=== PATIENT | female | born 1995 | race Caucasian/White ===

== ENCOUNTER → 2021-08-23 16:07 | Outpatient (CLI) | payer OTHER, SELFPAY ==
[2021-08-23 16:58] LABS: Appearance Urine UA CLEAR; Bilirubin Urine UA NEGATIVE (NEGATIVE); Color Urine UA YELLOW; Glucose Urine UA NEGATIVE (Negative); Ketones Urine UA NEGATIVE (NEGATIVE); Leukocyte Esterase Urine UA NEGATIVE (NEGATIVE); Nitrite Urine UA NEGATIVE (Negative); Occult Blood Urine UA TRACE-INTACT (Negative); Protein Urine UA NEGATIVE (Negative); Urobilinogen Urine UA 0.2 E.U./dL (0.2)
[2021-08-23 17:43] LABS: Add Manual Diff / Slide Review NO; Basophils Absolute Auto 100 /uL (0-100); Basophils Percent Auto 0.7 % (0-2); Eosinophils Absolute Auto 500 /uL (0-450); Eosinophils Percent Auto 4.7 % (2-4); Hematocrit 34.6 % (36-46); Hemoglobin 12.4 g/dL (12.0-16.0); Lymphocytes Absolute Auto 2500 /uL (1100-4500); Lymphocytes Percent Auto 23.9 % (25-40); Mean Corpuscular HGB Conc 35.8 % (30-36); Mean Corpuscular Volume 86.7 fL (80-100); Monocytes Absolute Auto 700 /uL (0-900); Monocytes Percent Auto 6.9 % (3-14); Neutrophils Absolute Auto 6700 /uL (1500-7000); Neutrophils Percent Auto 63.8 % (50-75); Platelet Count 290 X10^3/uL (150-400); Red Blood Cell Count 3.99 X10^6/uL (4.0-5.2); Red Cell Distribution Width 12.2 % (11.6-14.8); White Blood Cell Count 10.5 X10^3/uL (4.5-11.0)
[2021-08-24 07:25] LABS: RPR Screen Non Reactive (Non Reactive)
[2021-08-25 06:18] LABS: Varicella IgG Antibody <135 index (Immune >165)
[2021-08-26 16:18] LABS: Hepatitis B Surface Antigen NEGATIVE s/c (NEGATIVE); Rubella Antibody IgG 15.1 IU/mL (>15)
[2021-08-26 16:33] LABS: HIV 1 & 2 Ab/Ag 4th Gen Combo NEGATIVE (NEGATIVE); Hep C Virus Ab w/Reflex Quant NEGATIVE s/c (NEGATIVE)
== END ==
PROVIDERS: PCP Physician Assistant; Referring Provider Obstetrics & Gynecology; Visit Provider Obstetrics & Gynecology
DX: Z34.01 Encounter for supervision of normal first pregnancy, first trimester (principal)
CPT/HCPCS: 36415; 80055; 81003; 86787; 86803; 86850; 86900; 86901; 87086; 87389

== ENCOUNTER → 2021-09-05 16:39 | Outpatient (CLI) | payer OTHER, SELFPAY ==
[2021-09-05 20:49] LABS: Urine Chlamydia NOT DETECTED; Urine N gonorrhoeae NOT DETECTED
== END ==
PROVIDERS: PCP Physician Assistant; Visit Provider Obstetrics & Gynecology
DX: Z34.01 Encounter for supervision of normal first pregnancy, first trimester (principal); Z3A.10 10 weeks gestation of pregnancy
CPT/HCPCS: 87491; 87591

== ENCOUNTER → 2021-10-17 17:17 | Outpatient (CLI) | payer OTHER, SELFPAY ==
[2021-10-21 16:07] LABS: AFP Value 37.3 ng/mL (.); Gest Age on Col Date 16.3 weeks (.); Insulin Dep Diabetes No (.); OSBR Risk 1IN 10000 (.); Results Report (.); Test Results *Screen Negative* (.)
== END ==
PROVIDERS: PCP Physician Assistant; Referring Provider Obstetrics & Gynecology; Visit Provider Obstetrics & Gynecology
DX: Z34.02 Encounter for supervision of normal first pregnancy, second trimester (principal); Z3A.16 16 weeks gestation of pregnancy
CPT/HCPCS: 36415; 82105

== ENCOUNTER → 2021-11-22 09:12 | Outpatient (CLI) | payer OTHER, SELFPAY ==
--- NOTE | 2021-11-22 09:13 | DI.US.S_ITS ---
PROCEDURE: US OB >= 14 WEEKS FETUS INDICATIONS: Anatomy scan OUTSIDE/PRIOR DATING DATA: Last menstrual period (LMP): 06/25/2021 LMP-based estimated date of delivery (TANIKA): 04/01/2022 First dating scan (date and location): 09/05/2021 Estimated date of delivery (TANIKA) from first dating scan: 04/01/2022 The calculations are made using the ultrasound TANIKA of 04/01/2022 TECHNIQUE: Real-time scanning was performed of the fetus, with image documentation and biometric measurements. Endovaginal scanning: Not performed. COMPARISON: [facility], , OB <= 14 WEEKS FETUS, 09/05/2021, 17:15. FINDINGS: General: A single living intrauterine gestation is present. Presentation: Vertex Placenta: Placental position is posterior, without previa. Amniotic fluid index: 12.7 cm, normal range is 5-24 cm. Single deepest vertical pocket is 4.0 cm. heart rate: 149 beats per minute. Maternal cervical canal: 3.5 cm long. Normal lower limit is 2.5 cm. biometrics: Biparietal diameter: 5.34 cm, 22 weeks 2 days Head circumference: 19.8 cm, 22 weeks 0 days Abdominal circumference: 16.3 cm, 21 weeks 2 days Femur length: 3.55 cm, 21 weeks 2 days Clinically estimated gestational age: 21 weeks 3 days Composite gestational age from present scan: 21 weeks 5 days Estimated weight and percentile: 420 g, 42nd percentile Anatomic survey: Neuro: Ventricles are non-dilated at less than 10 mm. Cisterna magna is normal at 3-11 mm. Cerebellum is normal in size and morphology. Nuchal skin fold: Normal at less than 6 mm between 14-21 weeks gestational age. Face: Nose and lips appear normal. Facial profile not visualized. Spine: No evidence for spina bifida. Heart: 4-chambered heart is present. Ventricular outflow tracts not well visualized. Diaphragm: Diaphragm is intact. Stomach: Left-sided stomach is present. Kidneys: No hydronephrosis. Normal is less than 5 mm in 2nd trimester, less than 7 mm in 3rd trimester. Cord: 3-vessel cord has orthotopic insertion. Bladder: Normal in size. Extremities: All 4 extremities identified. IMPRESSION: 1. Single live intrauterine with appropriate interval growth. Estimated weight is 420 g, 42nd percentile for gestational age. 2. facial profile and ventricular outflow tracts are not well visualized. Recommend follow-up exam. 3. Otherwise, anatomic survey is within normal limits. We strive to produce accurate, complete, and clear reports of imaging services. To assist us in improving patient care, this report was composed using standard report templates and voice recognition software. Therefore, it may contain abnormal punctuation, insertions and/or omissions. Occasional wrong-word or sound-alike substitutions may occur. Though we review the report and make efforts to correct it, we do recommend that the report be read carefully in proper context to recognize any text inaccuracies. Dictated by: Orlando Parikh M.D. on 11/22/2021 at 12:57 Approved by: Orlando Parikh M.D. on 11/22/2021 at 13:19
== END ==
PROVIDERS: PCP Physician Assistant; Referring Provider Obstetrics & Gynecology; Visit Provider Obstetrics & Gynecology
DX: Z34.82 Encounter for supervision of other normal pregnancy, second trimester (principal)
CPT/HCPCS: 76811

== ENCOUNTER → 2021-12-23 07:55 | Outpatient (CLI) | payer OTHER, SELFPAY ==
[2021-12-23 10:31] LABS: Hematocrit 35.5 % (36-46); Hemoglobin 12.5 g/dL (12.0-16.0)
[2021-12-23 11:08] LABS: GTT (PREG) 1 Hour PP 50gm Dose 95 mg/dL (76-139)
== END ==
PROVIDERS: PCP Physician Assistant; Referring Provider Obstetrics & Gynecology; Visit Provider Obstetrics & Gynecology
DX: Z34.02 Encounter for supervision of normal first pregnancy, second trimester (principal); Z3A.26 26 weeks gestation of pregnancy
CPT/HCPCS: 36415; 82950; 85014; 85018

== ENCOUNTER 2022-02-18 06:17 | Outpatient (CLI) | payer OTHER, SELFPAY | END 2022-02-18 06:57 | disposition home or self-care (01) | LOC: LABOR 06:23 → OB 02-20 16:10 | PROVIDERS: PCP Physician Assistant; Referring Provider Obstetrics & Gynecology; Visit Provider Obstetrics & Gynecology | DX: O47.03 False labor before 37 completed weeks of gestation, third trimester (principal); O26.893 Other specified pregnancy related conditions, third trimester; R51.9 Headache, unspecified; Z3A.34 34 weeks gestation of pregnancy | CPT/HCPCS: 59025; G0378; G0379 ==

== ENCOUNTER → 2022-03-04 08:16 | Outpatient (CLI) | payer OTHER, SELFPAY ==
[2022-03-05 11:53] LABS: Strep Grp B PCR NEG for Grp B Strep
== END ==
PROVIDERS: PCP Physician Assistant; Visit Provider Obstetrics & Gynecology
DX: Z34.03 Encounter for supervision of normal first pregnancy, third trimester (principal); Z3A.36 36 weeks gestation of pregnancy
CPT/HCPCS: 87653

== ENCOUNTER 2022-03-18 11:18 | Outpatient (CLI) | payer OTHER, SELFPAY | END 2022-03-18 12:10 | disposition home or self-care (01) | LOC: LABOR 11:54 → OB 03-20 12:01 | PROVIDERS: PCP Physician Assistant; Referring Provider Obstetrics & Gynecology; Visit Provider Obstetrics & Gynecology | DX: O47.1 False labor at or after 37 completed weeks of gestation (principal); Z3A.38 38 weeks gestation of pregnancy | CPT/HCPCS: 59025; G0378; G0379 ==

== ENCOUNTER 2022-04-02 06:45 | Inpatient (IN) | payer OTHER, SELFPAY ==
[2022-04-02 07:59] VITALS: BP 117/80
--- NOTE | 2022-04-02 08:06 | PM.OBHP.IH.1 ---
OB HPI Date/Time Date of admission: 04/02/22 Date Patient Seen: 04/02/22 Time Patient Seen: 08:07 History of Present Condition Chief complaint: Induction TANIKA Calculator Estimated Delivery Date Method Current WG Current Estimate 04/01/22 LMP (Certain) 47w 1d Other Estimates 04/01/22 Ultrasound #1 47w 1d Estimated Gestational Age (weeks): 40+1 : 1 Para: 0 care: good care, initiated at week # (10), number of visits (10) and pounds weight gain (38) Dating criteria OB: LMP confirmed by 1st trimester US Ultrasounds: normal 1st trimester US and normal mid trimester US Obstetrical complications: none Medical complications OB: cardiovascular (POTS) Indications Indication for induction OB: maternal discomfort Other reason(s) for admission: POTS Preadmission Labs Last OB Lab Results: Blood Type A Positive 04/02/22 07:30 Antibody Screen Negative 04/02/22 07:30 Hematocrit 26.3 % (36-46) L 04/03/22 12:55 Hemoglobin 8.9 g/dL (12.0-16.0) L 04/03/22 12:55 Hepatitis B Surface Antigen Negative s/c (NEGATIVE) 08/23/21 16:13 Hepatitis C Antibody Negative s/c (NEGATIVE) 08/23/21 16:13 Rubella Antibody 15.1 IU/mL (>15) 08/23/21 16:13 Varicella-Zoster IgG Antibody <135 index (Immune >165) L 08/23/21 16:13 Glucose 1 Hour 95 mg/dL (76-139) 12/23/21 08:34 Group B Streptococcus (PCR) Neg for grp b strep 03/04/22 08:16 -: Chlamydia screen: negative, Gonorrhea screen: negative and Urine: negative -: PAP smear: Normal Genetic Screens: Cell-free DNA: Normal and Alpha-fetoprotein: Normal External Labs -: Urine: negative Evaluation Evaluation Baseline heart rate: 135 Variability: Moderate (11-25) monitor accelerations: Present Monitor Decelerations: Absent Status: Category l Dilation (cm): 3 Effacement (%): 90 station: -1 [facility] Medical History (Updated 05/12/22 @ 17:29 by Olesya Damon DO) Allergies (~2012) Asthma (~2000) Bacterial pneumonia Encounter for supervision of normal first , first trimester Postural orthostatic tachycardia syndrome (~2014) Wears glasses Surgical History (Updated 02/04/21 @ 21:52 by Aleta Dorman) Anesthesia History of oral surgery (~2016) [place] teeth extracted (~2017) Family History (Updated 08/19/21 @ 08:17 by Mira Jauregui RN) Mother Depression Brother Depression Schizophrenia Grandfather Diabetes mellitus Alzheimers disease Grandfather Hypertension Hyperlipidemia Esophageal cancer Grandmother Cancer Social History marital status: number of children: 0 household members: spouse and family (Mother) lives independently: Yes housing: house pets and animals: Yes (2 dogs) education level: master's degree (Master's in progress as of 08/2021) occupational status: employed current occupational exposures/hazards: Yes (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, 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) special eloina needs: No travel history: recent ([place] only) seatbelt use: always helmet use: Yes water heater temp set < 120 deg: Yes working smoke detector in home: Yes fire extinguisher in home: Yes carbon monox detector in home: Yes firearms in home: No do you feel safe at home: Yes Smoking Status: Never smoker second hand exposure: No alcohol intake: current (1 drink per month ) substance use type: marijuana (very occasionally, not while ) during the past year weight has: remained stable well-balanced diet: daily or most days daily servings fruits/ve-4 caffeine: Yes (Occasionally, aware of 200mg limit) Type(s) of exercise: walking Meds Home Medications and Allergies Home Medications Medication Instructions Recorded Confirmed Type cetirizine 10 mg capsule (Zyrtec) 10 mg PO DAILY PRN 08/19/21 05/14/22 History prenat.vits,cici,sss-wiec-peori 1 tab PO DAILY 08/19/21 05/14/22 History albuterol sulfate 90 mcg/actuation 2 puff inhalation Q6H PRN 05/12/22 05/14/22 Rx aerosol inhaler shortness of breath or wheezing #8.5 grams norethindrone (contraceptive) 0.35 0.35 mg PO DAILY #84 tabs 05/14/22 05/14/22 Rx mg tablet (Ortho Micronor) Allergies Allergy/AdvReac Type Severity Reaction Status Date / Time adhesive Allergy Intermediate Rash Verified 05/14/22 09:32 OB Exam Narrative Exam Narrative: Generally: Sitting up in bed, no acute distress Lungs: CTA bilat CV: RRR FH: 39 cm EFW: 7 1/2 # Ext: No edema, 1+ DTR Objective Labs 04/03/22 12:55 Assessment and Plan Assessment and Plan Assessment and Plan narrative: Assessment: 26 year old at 40+1 for induction of labor Favorable cervix Plan: Pit per protocol AROM Epidural prn Expectant management to Time Spent with Patient Total time spent with greater than 50% in coordination of care (as documented) at patient's floor/unit and/or counseling patient:: 15-24 minutes
[2022-04-02] MEDS: OXYTOCIN PREMIX 30 UNIT/500 ML PLAST..BAG IV (08:11)
[2022-04-02] MEDS: LACTATED RINGERS 1,000 ML 100 ML IV ×2 (08:11→12:58)
[2022-04-02 08:46] LABS: Add Manual Diff / Slide Review NO; Basophils Absolute Auto 100 /uL (0-100); Basophils Percent Auto 0.6 % (0-2); Eosinophils Absolute Auto 200 /uL (0-450); Hematocrit 37.3 % (36-46); Hemoglobin 12.9 g/dL (12.0-16.0); Lymphocytes Absolute Auto 1900 /uL (1100-4500); Lymphocytes Percent Auto 18.3 % (25-40); Mean Corpuscular HGB Conc 34.5 % (30-36); Mean Corpuscular Hemoglobin 31.1 PG (26-34); Mean Corpuscular Volume 90.3 fL (80-100); Monocytes Absolute Auto 800 /uL (0-900); Monocytes Percent Auto 7.7 % (3-14); Neutrophils Absolute Auto 7600 /uL (1500-7000); Neutrophils Percent Auto 71.4 % (50-75); Platelet Count 356 X10^3/uL (150-400); Red Blood Cell Count 4.13 X10^6/uL (4.0-5.2); Red Cell Distribution Width 12.9 % (11.6-14.8); White Blood Cell Count 10.7 X10^3/uL (4.5-11.0)
[2022-04-02 10:09] LABS: COVID19 -Nasal RAPID Negative (Negative)
--- NOTE | 2022-04-02 10:40 | PM.OBPNLAB ---
Date/Time Date Patient Seen: 04/02/22 Time Patient Seen: 10:40 Pain Control Pain control: tolerating well Pelvic Exam Dilation (cm): 3 Effacement (%): 90 station: 0 Amniotic membrane status: Intact Contractions Contractions on admission: none Monitor mode: External Pitocin rate (mU/min): 5 Contraction frequency (min): 3 Contraction duration (min): 1 Contraction pattern: Regular Contraction intensity: Mild Status status: Category l Heart Rate Baseline: 135 Monitor Accelerations: Present Monitor Decelerations: Absent Monitor Variability: Moderate Assessment and Plan Assessment: induction ongoing Comments: AROM with copious clear amniotic fluid Epidural prn
[2022-04-02] MEDS: FENT 2MCG/ML BUPIV 0.125% EPI 200 MCG/100 ML PLAST..BAG 8 MCG EPIDURAL (12:51)
--- NOTE | 2022-04-02 13:35 | PM.OBPNLAB ---
Date/Time Date Patient Seen: 04/02/22 Time Patient Seen: 12:50 Pain Control Pain control: epidural (Being placed) Pelvic Exam Dilation (cm): 3 Effacement (%): 90 station: 0 Amniotic membrane status: Ruptured Contractions Monitor mode: External Pitocin rate (mU/min): 0 Contraction frequency (min): 3 Contraction duration (min): 1 Contraction pattern: Regular Contraction intensity: Strong/Firm Status status: Category l Heart Rate Baseline: 135 Monitor Accelerations: Present Monitor Decelerations: Absent Monitor Variability: Moderate Assessment and Plan Assessment: active labor Plan: continuous present management Comments: Restart Pitocin at half the dose after epidural complete Place Abdi catheter Expected management to spontaneous vaginal delivery
[2022-04-02] MEDS: LIDOCAINE 1% 20 ML (20:00)
[2022-04-02] MEDS: FENT 2MCG/ML BUPIV 0.125% EPI 200 MCG/100 ML PLAST..BAG 4 MCG EPIDURAL (20:42)
--- NOTE | 2022-04-02 20:55 | PM.OBPRVD ---
Events: Labor Induction Labor & Delivery Delivery date: 04/02/22 Intrapartal Events: Deceleration (deep variable decels with pushing) Cervical ripening method: none Induction method: per pitocin protocol Delivery augmentation: rupture of membranes Delivery monitor: external FHT and external uterine Route of delivery: forceps (Outlet, Laufe) Indication for instrumentation: nonreassuring FHR tracing (deep variable decelerations with pushing) Episiotomy description: None L&D Laceration Description: Perineal - 4th Degree and Vaginal - 2nd Degree Delivery repair: vicryl and chromic Quantitative Blood Loss: 1,261 Anesthesia Type: Epidural Complications: Low blood pressure and tachycardia immediatley after epidural bolus. Treated with fluid resuscitation. Narrative: Patient complete and pushing for 54 min. Due to deep variable decels with pushing, vacuum was applied, but there was no movement of the vertex. Laufe forceps were applied due to deep variable decels. With one contraction, the vertex was brought to the perineum. The forceps were removed. With pushing, the vertex delivered at 1929 pm, over an intact perineum. There was a 20 sec shoulder dystocia that was relieved with Elizabeth and suprapubic pressure. The infant was placed on mom's abdomen. The cord was double clamped and cut. Cord bloods were obtained. Pitocin was given in the IVF's. The fundus was massaged to firm. A 4th degree laceration was noted and repaired on the mucosa, sphincter, perineal body, vaginal mucosa and skin in the usual fashion. A rectal exam was performed and the sphincter was intact. Hemostasis was achieved. Apgars 9 at one minute and 9 at five minutes. Wt: 7# 8.7oz. . Epidural analgesia. Mom and infant stable to recovery. Baby 1: gender: Female Presentation: vertex Position: Right Occiput Transverse Placenta delivery description: Spontaneous Cord Vessel Description: 3 Vessels (very short cord, 8 inches) and Clamped/Cut (after a few minutes) score (1 min): 9 score (5 min): 9 weight: 7 lb 8.7 oz Plan for aftercare: Other (Abdi to CD, Bakri balloon in vagina hooked to gravity drainage)
[2022-04-02] MEDS: CEFAZOLIN 2 GM/100 ML PREMIX 100 ML IV (22:54)
[2022-04-02 23:18] LABS: Hematocrit 27.4 % (36-46); Hemoglobin 9.5 g/dL (12.0-16.0)
[2022-04-03 01:37] LABS: Hematocrit 22.7 % (36-46); Hemoglobin 7.6 g/dL (12.0-16.0)
[2022-04-03 02:49] VITALS: BP 99/54; PULSE 126; RESP 18; TEMP 36.6
[2022-04-03 03:06] VITALS: BP 108/59; PULSE 114; RESP 18; TEMP 37.2
[2022-04-03] MEDS: IBUPROFEN 600 MG TABLET PO (03:43)
[2022-04-03 05:04] VITALS: BP 94/51; PULSE 105; RESP 16; TEMP 37.1
[2022-04-03 06:17] LABS: Hematocrit 25.6 % (36-46); Hemoglobin 8.7 g/dL (12.0-16.0)
[2022-04-03] MEDS: CEFAZOLIN 2 GM/100 ML PREMIX 100 ML IV (08:42)
[2022-04-03] MEDS: PRENATAL VIT,CALC/IRON/FOLIC 1 TABLET 1 TAB PO (08:43)
[2022-04-03] MEDS: DOCUSATE 100 MG CAPSULE PO ×2 (08:43→21:57)
[2022-04-03] MEDS: KETOROLAC 30 MG/ML VIAL IV ×3 (10:21→21:56)
[2022-04-03 13:17] LABS: Hematocrit 26.3 % (36-46); Hemoglobin 8.9 g/dL (12.0-16.0)
[2022-04-03] MEDS: ACETAMINOPHEN 325 MG TABLET 650 MG PO ×2 (13:22→19:08)
[2022-04-04] MEDS: ACETAMINOPHEN 325 MG TABLET 650 MG PO ×2 (01:26→06:58)
[2022-04-04] MEDS: KETOROLAC 30 MG/ML VIAL IV (04:05)
[2022-04-04] MEDS: DOCUSATE 100 MG CAPSULE PO (09:06)
[2022-04-04] MEDS: PRENATAL VIT,CALC/IRON/FOLIC 1 TABLET 1 TAB PO (09:06)
[2022-04-04 09:49] VITALS: BP 123/63; PULSE 100; RESP 17; TEMP 36.5
--- NOTE | 2022-05-19 14:22 | PM.OBDS.1 ---
Discharge Providers Provider Date of admission: 04/02/22 06:45 Discharge Date: 04/04/22 Primary care physician: Trina Prescott PA-C Consults: 04/03/22 20:47 Consult to Car Head Liner Installer Routine Comment: Anesthesia for epidural Discharge provider: Sahra Chaudhary MD Summary Hospital Course Date Patient Seen: 04/04/22 Time Patient Seen: 09:30 Diagnoses: 40+1 weeks gestation Induction of labor with Pitocin Outlet assisted vaginal delivery 4th degree laceration and repair Hospital Course: Patient is a 26-year-old 1 her 1 who presented on April 02, 2022 at 40-,1/7 weeks gestation for induction of labor. At 10:40 a.m. she was 3 cm/90%/0 station and Pitocin was at 5. Artificial rupture membranes was performed clear amniotic fluid. A 12 50 she was 3 cm/90%/0 station. She received an epidural for pain management. On April 02, 2022 she had a vaginal delivery with outlet forceps assist. She had a 4th degree laceration which was repaired. Her course was unremarkable. She was discharged home on April 04, 2022. Peripartum Data Infant Delivery Method: Assisted Delivery (Laufe forceps assisted) Laceration Description: Perineal - 4th Degree Episiotomy description: None Procedures: Pitocin induction of labor Epidural analgesia Artificial rupture of membranes Outlet assisted forceps vaginal delivery 4th degree laceration repair complications: none Max 1: Gender: Female Disposition of : home Status at Discharge Cognitive/behavioral status at discharge: oriented Functional status at discharge: independent ambulation Overall status at discharge: patient is progressing back to baseline Time Spent with Patient Time attestation: Total time spent providing and/or coordinating discharge services: Time spent: Less than 30 minutes Objective Labs 04/03/22 12:55 Exam Narrative Exam Narrative: Generally: Patient is sitting up in bed, holding , no acute distress Fundus: Firm at U-1 Perineum: Intact Extremities: Trace edema, negative Homans Discharge Plan Discharge Plan Patient Disposition: Home Provider Discharge Comment: Call with fever, chills, or bleeding vaginally more than a pad in an hour Ibuprofen 600 mg every 6 hours as needed for cramping Tylenol 650 mg every 6 hours as needed Stool softners for 6 weeks Push oral fluids Eat meat and green, leafty vegetables Keep legs/feet elevated until swelling resolves Discharge orders & Medications Prescriptions: Continued prenat.vits,cici,iry-zjhz-tsrsk Tablet 1 tab PO DAILY Zyrtec 10 mg capsule 10 mg PO DAILY PRN Discontinued ondansetron 4 mg tablet,disintegrating 4 mg PO Q8H Qty: 20 2RF ondansetron 4 mg tablet,disintegrating 4 mg PO Q6H PRN (Reason: nausea and vomiting) Qty: 20 3RF No Action albuterol sulfate 90 mcg/actuation HFA aerosol inhaler 2 puff inhalation Q6H PRN (Reason: shortness of breath or wheezing) Qty: 8.5 1RF norethindrone (contraceptive) [Ortho Micronor] 0.35 mg tablet 0.35 mg PO DAILY Qty: 84 3RF Follow up/Referrals: Sahra Chaudhary MD [Physician] - 04/10/22 1:15 pm (Please follow up with Dr. Chaudhary on Thursday, May 14 @ 0945AM for your post- check-up. 04/10/22 at 115 pm to check perineum ) Diet/Activity/Treatments Diet: Regular Activity: Nothing in the vagina for at least 6 weeks Skin/Wound/Dressing Care Report to your healthcare provider any signs of infection, such as:: chills, fever, increased pain and unusual drainage Visit Report/Discharge Packet Instructions: DI for Labor and Delivery, Vaginal Stand Alone Forms: Discharge: Care, Patient Portal/API, Stroke Signs & Symptoms Discharge Data Primary Care Provider: Trina Prescott
== END 2022-04-04 11:30 | disposition home or self-care (01) | DRG 768 ==
PROVIDERS: Admitting Provider Obstetrics & Gynecology; PCP Physician Assistant; Referring Provider Obstetrics & Gynecology; Visit Provider Obstetrics & Gynecology
DX: O99.42 Diseases of the circulatory system complicating childbirth (principal); Z37.0 Single live birth; O70.3 Fourth degree perineal laceration during delivery; G90.A Postural orthostatic tachycardia syndrome [POTS]; O76 Abnormality in fetal heart rate and rhythm complicating labor and delivery; Z3A.40 40 weeks gestation of pregnancy; Z20.822 Contact with and (suspected) exposure to COVID-19
CPT/HCPCS: 36415; 36430; 59050; 59400; 85014; 85018; 85025; 86850; 86900; 86901; 87635; C9803; P9016; G0379; J0690; J1885; J2590

== ENCOUNTER 2022-07-15 09:45 | Outpatient (RCR) | payer OTHER, SELFPAY ==
--- NOTE | 2022-06-19 17:00 | PT.OIE ---
Current Diagnoses Other specified disorders of muscle (06/19/22) Pelvic muscle wasting (06/19/22) Unspecified dyspareunia (06/19/22) Urgency of urination (06/19/22) Past Medical History (Last Updated 09/30/21 @ 13:35 by Mira Jauregui RN) Allergies (~2012) Asthma (~2000) Bacterial pneumonia Encounter for supervision of normal first , first trimester Postural orthostatic tachycardia syndrome (~2014) Wears glasses Past Surgical History (Last Updated 02/04/21 @ 21:52 by Aleta Dorman) Anesthesia History of oral surgery (~2016) [place] teeth extracted (~2016) Visit Care Team Role Provider Type Olesya Damon DO Family Provider Physician Primary Care Provider Specialty: Medical Address: [address] [place] [address], [id number] Email: [email or web address] Sahra Chaudhary MD Attending Provider Physician Referring Provider Specialty: Gynecology DIRECTOR OF FOOD AND BEVERAGE SERVICES Obstetrics Address: [address] [place] [address], [id number] Email: [email or web address] Physical Therapy Initial Evaluation PT-OP-A Visit Information Start: 06/19/22 11:09 Freq: Status: Active Protocol: Document 06/19/22 11:15 [facility] (Rec: 06/19/22 12:27 [facility] [id number]) Out-Patient Physical Therapy Visit Information Visit Information Visit Type Initial Evaluation Visit Start Time 11:19 Visit Stop Time 12:04 Total Visit Minutes 45 Visit Number 1 Evaluation Information Evaluation Date 06/19/22 PT-OP-B Current Condition Start: 06/19/22 11:09 Freq: Status: Active Protocol: Document 06/19/22 11:15 [facility] (Rec: 06/19/22 12:27 [facility] [id number]) Current Condition History of Current Condition Current Complaints post urinary urgency, leakage, fatigue and pain with intercourse History of Current Condition pt notes she gave 2.5 months ago, she flet like she had to void constantly and if she sneezes or cough too hard she leaks, she has pain with and after intercourse, she will feel fatieh She is slowly getting the sensation back that she needs to use the bathroom. The intense urge sensation is really only at night. Her baby is sleeping 6 hours with her x 6 hours. pt had a 4th degree tear. Treatment Goals Patient/Caregiver Goals Pt's goals include improving strength of the pelvic floor and reducing urinary leakage and urgency PT-OP-C Subjective Start: 06/19/22 11:09 Freq: Status: Active Protocol: Document 06/19/22 11:15 [facility] (Rec: 06/19/22 17:13 [facility] [id number]) Patient Questionnaires Pelvic Pain and Urgency/Frequency Patient Symptom Scale Pelvic Pain Score 13 OP-PT Pain Assessment Location pelvic pain Pain Location Details pelvic pain Intensity 4 Scale Used Numeric (0 - 10) PT-OP-I Pelvic Floor Start: 06/19/22 11:09 Freq: Status: Active Protocol: Document 06/19/22 11:15 [facility] (Rec: 06/19/22 17:11 [facility] [id number]) Pelvic Floor Assessment Urine Pelvic Floor Surgery No: childbirth with forcep delivery Urinary Symptoms Urge Sensation,Pain Other Urinary Symptoms urgency and frequency, urinary incontinence, pain with intercourse and with urination Leakage Size Medium Leakage Cause Urge Nocturia 1-2 xms Pelvic Clock Pelvic Clock 12-3 Atrophy Perineal Descent Bearing Present SEMG (uV) Baseline 1.9 10 Second Contraction 4.8 Recruitment Pattern Fair Relaxation Fair Holding Poor/Slow Stability of Hold Poor/Slow SEMG Stability of Rest Fair Contraction Ability Voluntary Contraction Weak Voluntary Relaxation Weak Manual Muscle Testing Left 1 Manual Muscle Testing Right 1 Manual Muscle Testing Anterior 1 Manual Muscle Testing Posterior 2 Muscle Endurance (Seconds) 4 Comments Pelvic Floor Comments pt has the most contraction over the posterior wall with 2 /5 MMT, lateral and anterior wall are much more difficult for Polly to facilitate a contraction. She is able to pull up from her perineum PT-OP-M Strength Start: 06/19/22 11:09 Freq: Status: Active Protocol: Document 06/19/22 11:15 [facility] (Rec: 06/19/22 17:14 [facility] [id number]) Trunk Strength Trunk Manual Muscle Testing Core Stabilization decreased activation of the transverse abdominal musulature post PT-OP-Q Treatments Start: 06/19/22 11:09 Freq: Status: Active Protocol: Document 06/19/22 11:15 [facility] (Rec: 06/19/22 17:05 [facility] [id number]) Therapeutic Exercises Supine Exercises pelvic floor long holds Reps/Minutes 10 reps holding 5-10 seconds and relaxing 10 sec Comments adductor assist was used after 5 reps due to fatigue Other Exercises quadruped TA Reps/Minutes pt to work on holding up to 10 seconds x 10 reps PT-OP-T Assessment and Plan Start: 06/19/22 11:09 Freq: Status: Active Protocol: Document 06/19/22 11:15 [facility] (Rec: 06/22/22 14:20 [facility] [id number]) Physical Therapy Assessment Rehab Potential Rehabilitation Potential Excellent Evaluation Complexity Number of Personal Factors/Comorbidities 0 Number of Body Systems Impaired 1-2 Clinical Presentation at Evaluation Stable Impairments Impairments Activity Tolerance,Functional Activities,Functional Mobility ,Posture,Soft Tissue Mobility, Strength Other Impairments urinary urgency and incontinence, pelvic pain Goals 3 Impairment urinary leakage with urge to void and with strong cough or sneeze leaking at times through her underware. Prison Goal (LTG) Polly reports overall significant reduction in urinary leakage and is able to resume walks without urinary urgency LTG Duration 8 weeks 2 Impairment Decreased pelvic floor endurance Short Term Goal (STG) Polly is able to sustain a pelvic floor contraction x 10 seconds in supine STG Duration 4 weeks Furniture Inspector Goal (LTG) Polly is able to sustain a pelvic floor contraction x 5 seconds in standing LTG Duration 8 wees 1 Impairment pelvic floor weakness with decreased support for the pelvic organs Short Term Goal (STG) Polly is educated on proper faciliation of her pelvic floor muscles with EMG biofeedback and manual cues STG Duration 3 weeks Furniture Inspector Goal (LTG) Polly is able to increase her pelvic floor support by at least 1 muscle grade to provide improved support for the pelvic organs LTG Duration 8 weeks+ Assessment Summary Assessment Polly is a 26 year old female gavida 1 para 1 2 1/2 months forceps delivery and .25 degree laceration that is well healing. Pt has c/o pain with intercourse, pain with urination at times and urinary leakage with strong urge to void. She reports she hasn't pushed exercise but has started walking with her baby and long wasks are harder to do due. She rates her pelvic pain as 4/10 and low back heavenly david 2/10. She notes she is waking with her baby at night and voids 1-2 times during the night. She has c/o pelvic pressure with exertion . With pelvic floor examination Polly is weak in all holland of the pelvic clock testing 1/5 MMT for anterior, right and left holland and 2/5 MMT for the posterior wall. It is an effort for her to relax her pelvic floor following a pelvic floor contraction. EMG biofeedback was inititiated today and pt was able to rest to 1.9 uv for average rest. Her average was 4.8 uv and max of 8.9 uv. Polly fatigues quickly and lacks endurance for sustained pelvic floor contractions greater than 5 seconds. She was given a small ball for adductor assist with pelvic floor contraction and this helped her sustain a pelvic floor contraction. She is able to draw in her perineum and vaginal tissue appears well healed. She was educated on transverse abdominal contraction today and would benefit from a core stabilization program post to support her back. She is a good candidate for PT . Physical Therapy Plan Frequency and Duration Frequency of Treatment 1x/Week Duration of treatment (weeks) 8 Plan of Care Start Date 06/19/22 Plan of Care End Date 08/14/22 Therapeutic Interventions Therapeutic Interventions Home Exercise Program,Manual Therapy,Neuromuscular Re- education,Patient/Caregiver Education,Self-Care/Home Management,Therapeutic Exercises Modalities Biofeedback Next Visit Focus/Plan Next Note Type Treatment Note Next Visit Plan EMG biofeedback for endurance training of the pelvic floor muscles, transverse abdominal stabilization exercises post . Begin stretches for the low back next visit
--- NOTE | 2022-06-19 17:00 | PT.OPPOC ---
Physical, Occupational & Speech Therapy At [facility] Current Diagnoses Other specified disorders of muscle (06/19/22) Pelvic muscle wasting (06/19/22) Unspecified dyspareunia (06/19/22) Urgency of urination (06/19/22) Visit Care Team Role Provider Type Olesya Damon DO Family Provider Physician Primary Care Provider Specialty: Medical Address: [address] [place] [address], [id number] Email: [email or web address] Sahra Chaudhary MD Attending Provider Physician Referring Provider Specialty: Gynecology HEADING REPAIRER Obstetrics Address: [address] [place] [address], [id number] Email: [email or web address] Plan Of Care PT-OP-T Assessment and Plan Start: 06/19/22 11:09 Freq: Status: Active Protocol: Document 06/19/22 11:15 [facility] (Rec: 06/22/22 14:20 [facility] [id number]) Physical Therapy Assessment Rehab Potential Rehabilitation Potential Excellent Evaluation Complexity Number of Personal Factors/Comorbidities 0 Number of Body Systems Impaired 1-2 Clinical Presentation at Evaluation Stable Impairments Impairments Activity Tolerance,Functional Activities,Functional Mobility ,Posture,Soft Tissue Mobility, Strength Other Impairments urinary urgency and incontinence, pelvic pain Goals 3 Impairment urinary leakage with urge to void and with strong cough or sneeze leaking at times through her under lazaro. Halfway Goal (LTG) Polly reports overall significant reduction in urinary leakage and is able to resume walks without urinary urgency LTG Duration 8 weeks 2 Impairment Decreased pelvic floor endurance Short Term Goal (STG) Polly is able to sustain a pelvic floor contraction x 10 seconds in supine STG Duration 4 weeks Halfway Goal (LTG) Polly is able to sustain a pelvic floor contraction x 5 seconds in standing LTG Duration 8 wees 1 Impairment pelvic floor weakness with decreased support for the pelvic organs Short Term Goal (STG) Polly is educated on proper facilitation of her pelvic floor muscles with EMG biofeedback and manual cues STG Duration 3 weeks Books Binder Goal (LTG) Polly is able to increase her pelvic floor support by at least 1 muscle grade to provide improved support for the pelvic organs LTG Duration 8 weeks+ Assessment Summary Assessment Polly is a 26 year old female gavida 1 para 1 2 1/2 months forceps delivery and .25 degree laceration that is well healing. Pt has c/o pain with intercourse, pain with urination at times and urinary leakage with strong urge to void. She reports she hasn't pushed exercise but has started walking with her baby and long walks are harder to do due. She rates her pelvic pain as 4/10 and low back pain as 2/10. She notes she is waking with her baby at night and voids 1-2 times during the night. She has c/o pelvic pressure with exertion . With pelvic floor examination Polly is weak in all holland of the pelvic clock testing 1/5 MMT for anterior, right and left holland and 2/5 MMT for the posterior wall. It is an effort for her to relax her pelvic floor following a pelvic floor contraction. EMG biofeedback was initiated today and pt was able to rest to 1.9 uv for average rest. Her average was 4.8 uv and max of 8.9 uv. Polly fatigues quickly and lacks endurance for sustained pelvic floor contractions greater than 5 seconds. She was given a small ball for adductor assist with pelvic floor contraction and this helped her sustain a pelvic floor contraction. She is able to draw in her perineum and vaginal tissue appears well healed. She was educated on transverse abdominal contraction today and would benefit from a core stabilization program post to support her back. She is a good candidate for PT . Physical Therapy Plan Frequency and Duration Frequency of Treatment 1x/Week Duration of treatment (weeks) 8 Plan of Care Start Date 06/19/22 Plan of Care End Date 08/14/22 Therapeutic Interventions Therapeutic Interventions Home Exercise Program,Manual Therapy,Neuromuscular Re- education,Patient/Caregiver Education,Self-Care/Home Management,Therapeutic Exercises Modalities Biofeedback Next Visit Focus/Plan Next Note Type Treatment Note Next Visit Plan EMG biofeedback for endurance training of the pelvic floor muscles, transverse abdominal stabilization exercises post . Begin stretches for the low back next visit Plan of Care Dates Plan of Care Start Date 06/19/22 Plan of Care End Date 08/14/22 Electronically Signed by: Joana Lechuga, PT 06/22/22 9527 If you are in agreement with this Plan of Care, please return a signed and dated copy. I have reviewed this Plan of Care and certify that the skilled therapy services above are required to meet the patient?s needs. Physician Signature Date Printed Name and Credentials Clinical Instructor Signature Printed Name and Credentials
--- NOTE | 2022-06-24 17:48 | PT.OTN ---
Current Diagnoses Other specified disorders of muscle (06/24/22) Pelvic muscle wasting (06/24/22) Unspecified dyspareunia (06/24/22) Urgency of urination (06/24/22) Physical Therapy Treatment Note PT-OP-A Visit Information Start: 06/19/22 11:09 Freq: Status: Active Protocol: Document 06/24/22 09:53 [facility] (Rec: 06/24/22 10:19 [facility] [id number]) Out-Patient Physical Therapy Visit Information Visit Information Visit Type Treatment Note Visit Start Time 09:53 Visit Stop Time 10:30 Total Visit Minutes 37 Visit Number 2 PT-OP-B Current Condition Start: 06/19/22 11:09 Freq: Status: Active Protocol: Document 06/19/22 11:15 [facility] (Rec: 06/19/22 12:27 [facility] [id number]) Current Condition History of Current Condition Current Complaints post urinary urgency, leakage, fatigue and pain with intercourse History of Current Condition pt notes she gave 2.5 months ago, she flet like she had to void constantly and if she sneezes or cough too hard she leaks, she has pain with and after intercourse, she will feel fatieh She is slowly getting the sensation back that she needs to use the bathroom. The intense urge sensation is really only at night. Her baby is sleeping 6 hours with her x 6 hours. pt had a 4th degree tear. Treatment Goals Patient/Caregiver Goals Pt's goals include improving strength of the pelvic floor and reducing urinary leakage and urgency PT-OP-C Subjective Start: 06/19/22 11:09 Freq: Status: Active Protocol: Document 06/24/22 09:53 [facility] (Rec: 06/24/22 10:19 [facility] [id number]) OP-PT Subjective Patient Comments Patient Comments pt notes she was more fatigued than she thought she would be after last visit, she has been working on her HEP and it is getting easier PT-OP-I Pelvic Floor Start: 06/19/22 11:09 Freq: Status: Active Protocol: Document 06/24/22 10:20 [facility] (Rec: 06/24/22 10:22 [facility] [id number]) Pelvic Floor Assessment SEMG (uV) 10 Second Contraction 7.5 PT-OP-M Strength Start: 06/19/22 11:09 Freq: Status: Active Protocol: Document 06/19/22 11:15 [facility] (Rec: 06/19/22 17:14 [facility] [id number]) Trunk Strength Trunk Manual Muscle Testing Core Stabilization decreased activation of the transverse abdominal musulature post PT-OP-Q Treatments Start: 06/19/22 11:09 Freq: Status: Active Protocol: Document 06/24/22 09:53 [facility] (Rec: 06/24/22 10:19 [facility] [id number]) Therapeutic Exercises Supine Exercises pelvic floor quick contractions Reps/Minutes x 10 reps TA with marches Reps/Minutes worked on level 1 and level 2 pelvic floor long holds Reps/Minutes 7.5 and max of 13.0 Comments pt did not require adductor assist Other Exercises nickolas pose Reps/Minutes hold 1-2 min Cat cow Reps/Minutes x 10 reps quadruped TA Reps/Minutes pt to work on holding up to 10 seconds x 10 reps PT-OP-T Assessment and Plan Start: 06/19/22 11:09 Freq: Status: Active Protocol: Document 06/24/22 09:53 [facility] (Rec: 06/24/22 17:47 [facility] [id number]) Physical Therapy Assessment Assessment Summary Assessment pt was given urge deference technique today as she does get some urgency when getting up at night to void. I also added onto her exercises with TA stabilization with marches. She tolerated this well. Eccentric control with lowering is a challange for her. Physical Therapy Plan Frequency and Duration Frequency of Treatment 1x/Week Duration of treatment (weeks) 8 Plan of Care Start Date 06/19/22 Plan of Care End Date 08/14/22 Therapeutic Interventions Therapeutic Interventions Home Exercise Program,Manual Therapy,Neuromuscular Re- education,Patient/Caregiver Education,Self-Care/Home Management,Therapeutic Exercises Modalities Biofeedback Next Visit Focus/Plan Next Note Type Treatment Note Next Visit Plan EMG biofeedback for endurance training of the pelvic floor muscles, transverse abdominal stabilization exercises post . Trial of NMES next visit for the pelvic floor
--- NOTE | 2022-07-02 10:13 | PT.OTN ---
Current Diagnoses Other specified disorders of muscle (07/01/22) Pelvic muscle wasting (07/01/22) Unspecified dyspareunia (07/01/22) Urgency of urination (07/01/22) Physical Therapy Treatment Note PT-OP-A Visit Information Start: 06/19/22 11:09 Freq: Status: Active Protocol: Document 07/01/22 09:53 [facility] (Rec: 07/01/22 09:59 [facility] [id number]) Out-Patient Physical Therapy Visit Information Visit Information Visit Type Treatment Note Visit Start Time 09:53 Visit Stop Time 10:30 Total Visit Minutes 37 Visit Number 3 PT-OP-B Current Condition Start: 06/19/22 11:09 Freq: Status: Active Protocol: Document 06/19/22 11:15 [facility] (Rec: 06/19/22 12:27 [facility] [id number]) Current Condition History of Current Condition Current Complaints post urinary urgency, leakage, fatigue and pain with intercourse History of Current Condition pt notes she gave 2.5 months ago, she flet like she had to void constantly and if she sneezes or cough too hard she leaks, she has pain with and after intercourse, she will feel fatieh She is slowly getting the sensation back that she needs to use the bathroom. The intense urge sensation is really only at night. Her baby is sleeping 6 hours with her x 6 hours. pt had a 4th degree tear. Treatment Goals Patient/Caregiver Goals Pt's goals include improving strength of the pelvic floor and reducing urinary leakage and urgency PT-OP-C Subjective Start: 06/19/22 11:09 Freq: Status: Active Protocol: Document 07/01/22 09:53 [facility] (Rec: 07/01/22 09:59 [facility] [id number]) OP-PT Subjective Patient Comments Patient Comments pt notes she is not as great as doing them as often as she should be. She has been tryng exercises in upright positions, she is feeling stronger PT-OP-I Pelvic Floor Start: 06/19/22 11:09 Freq: Status: Active Protocol: Document 06/24/22 10:20 [facility] (Rec: 06/24/22 10:22 [facility] [id number]) Pelvic Floor Assessment SEMG (uV) 10 Second Contraction 7.5 PT-OP-M Strength Start: 06/19/22 11:09 Freq: Status: Active Protocol: Document 06/19/22 11:15 [facility] (Rec: 06/19/22 17:14 [facility] [id number]) Trunk Strength Trunk Manual Muscle Testing Core Stabilization decreased activation of the transverse abdominal musulature post PT-OP-Q Treatments Start: 06/19/22 11:09 Freq: Status: Active Protocol: Document 07/01/22 09:53 [facility] (Rec: 07/01/22 09:59 [facility] [id number]) Therapeutic Exercises Supine Exercises TA with ASLR Reps/Minutes x 10 reps templates for the pelvic floor Reps/Minutes 5 min Comments eccentric control and coordination pelvic floor quick contractions Reps/Minutes x 10 reps Comments 14.2 TA with marches Reps/Minutes worked on level 1 and level 2 pelvic floor long holds Reps/Minutes 8.8 uv average max 13.5 Comments pt did not require adductor assist Sidelying Exercises clam shells Reps/Minutes 2 x 10 reps Neuro Re-Education Treatment Other Activities NMES Comments pt felt the NMES more in the front and on the left side PT-OP-T Assessment and Plan Start: 06/19/22 11:09 Freq: Status: Active Protocol: Document 07/01/22 09:53 [facility] (Rec: 07/02/22 10:12 [facility] [id number]) Physical Therapy Assessment Assessment Summary Assessment Polly is making good progress with PT, her average on EMG biofeedback is increasing and she is not relying on the adductor squeeze now for pelvic floor recruitment Physical Therapy Plan Frequency and Duration Frequency of Treatment 1x/Week Duration of treatment (weeks) 8 Plan of Care Start Date 06/19/22 Plan of Care End Date 08/14/22 Therapeutic Interventions Therapeutic Interventions Home Exercise Program,Manual Therapy,Neuromuscular Re- education,Patient/Caregiver Education,Self-Care/Home Management,Therapeutic Exercises Modalities Biofeedback Next Visit Focus/Plan Next Note Type Treatment Note Next Visit Plan begin the hundred for core strength, EMG biofeedback for endurance training of the pelvic floor muscles, transverse abdominal stabilization exercises post . Trial of NMES next visit for the pelvic floor
--- NOTE | 2022-07-08 10:30 | PT.OTN ---
Current Diagnoses Other specified disorders of muscle (07/08/22) Pelvic muscle wasting (07/08/22) Unspecified dyspareunia (07/08/22) Urgency of urination (07/08/22) Physical Therapy Treatment Note PT-OP-A Visit Information Start: 06/19/22 11:09 Freq: Status: Active Protocol: Document 07/08/22 09:51 [facility] (Rec: 07/08/22 10:30 [facility] [id number]) Out-Patient Physical Therapy Visit Information Visit Information Visit Type Treatment Note Visit Start Time 09:50 Visit Stop Time 10:20 Total Visit Minutes 30 Visit Number 4 PT-OP-B Current Condition Start: 06/19/22 11:09 Freq: Status: Active Protocol: Document 06/19/22 11:15 [facility] (Rec: 06/19/22 12:27 [facility] [id number]) Current Condition History of Current Condition Current Complaints post urinary urgency, leakage, fatigue and pain with intercourse History of Current Condition pt notes she gave 2.5 months ago, she flet like she had to void constantly and if she sneezes or cough too hard she leaks, she has pain with and after intercourse, she will feel fatieh She is slowly getting the sensation back that she needs to use the bathroom. The intense urge sensation is really only at night. Her baby is sleeping 6 hours with her x 6 hours. pt had a 4th degree tear. Treatment Goals Patient/Caregiver Goals Pt's goals include improving strength of the pelvic floor and reducing urinary leakage and urgency PT-OP-C Subjective Start: 06/19/22 11:09 Freq: Status: Active Protocol: Document 07/08/22 09:51 [facility] (Rec: 07/08/22 10:30 [facility] [id number]) OP-PT Subjective Patient Comments Patient Comments Thursday went on a walk and walked 4 miles and the next day she was sore in her pelvic floor. It took a couple days to recover. Doing better with intercourse and not experiencing pain. No leaking with her walk PT-OP-I Pelvic Floor Start: 06/19/22 11:09 Freq: Status: Active Protocol: Document 06/24/22 10:20 [facility] (Rec: 06/24/22 10:22 [facility] [id number]) Pelvic Floor Assessment SEMG (uV) 10 Second Contraction 7.5 PT-OP-M Strength Start: 06/19/22 11:09 Freq: Status: Active Protocol: Document 06/19/22 11:15 [facility] (Rec: 06/19/22 17:14 [facility] [id number]) Trunk Strength Trunk Manual Muscle Testing Core Stabilization decreased activation of the transverse abdominal musulature post PT-OP-Q Treatments Start: 06/19/22 11:09 Freq: Status: Active Protocol: Document 07/08/22 09:51 [facility] (Rec: 07/08/22 10:30 [facility] [id number]) Therapeutic Exercises Supine Exercises supine bridges with therabnad Equipment Used level 2 theraband Reps/Minutes 2 x 10 reps supine hip ER with band Equipment Used level 2 theraband Reps/Minutes 3 x 10 Comments Polly had her baby on her stomach for this exercise templates for the pelvic floor Reps/Minutes 5 min Comments eccentric control and coordination pelvic floor quick contractions Reps/Minutes x 10 reps Comments 14.2 pelvic floor long holds Reps/Minutes 9.3 uv average and max 12.7 Self-Care/Home Management Treatment Education Patient Education Home Exercise Program,Pain Management Other Education pt was educated on elevting her pelvis after a walk to decompress the pelvic floor PT-OP-T Assessment and Plan Start: 06/19/22 11:09 Freq: Status: Active Protocol: Document 07/08/22 09:51 [facility] (Rec: 07/08/22 10:30 [facility] [id number]) Physical Therapy Assessment Assessment Summary Assessment Polly is slowly improving with her strength and is able to have intercourse now without pain. She walked 4 miles pushing the stroller and felt she had over done it. I added in pelvic decompression with a wedge or with a yoga block for after her walks to take pressure off the pelvic floor. Polly's daughter was fussy today so I didn't add in the pilates hundred as she needed to hold her. Add in next visit. Physical Therapy Plan Frequency and Duration Frequency of Treatment 1x/Week Duration of treatment (weeks) 8 Plan of Care Start Date 06/19/22 Plan of Care End Date 08/14/22 Therapeutic Interventions Therapeutic Interventions Home Exercise Program,Manual Therapy,Neuromuscular Re- education,Patient/Caregiver Education,Self-Care/Home Management,Therapeutic Exercises Modalities Biofeedback Next Visit Focus/Plan Next Note Type Treatment Note Next Visit Plan continue progressing core strength, add in the hundred and check plank position next visit
--- NOTE | 2022-07-15 17:53 | PT.OTN ---
Current Diagnoses Other specified disorders of muscle (07/15/22) Pelvic muscle wasting (07/15/22) Unspecified dyspareunia (07/15/22) Urgency of urination (07/15/22) Physical Therapy Treatment Note PT-OP-A Visit Information Start: 06/19/22 11:09 Freq: Status: Active Protocol: Document 07/15/22 09:50 [facility] (Rec: 07/15/22 17:43 [facility] [id number]) Out-Patient Physical Therapy Visit Information Visit Information Visit Type Treatment Note Visit Start Time 09:50 Visit Stop Time 10:20 Total Visit Minutes 30 Visit Number 5 Evaluation Information Evaluation Date 06/19/22 PT-OP-B Current Condition Start: 06/19/22 11:09 Freq: Status: Active Protocol: Document 06/19/22 11:15 [facility] (Rec: 06/19/22 12:27 [facility] [id number]) Current Condition History of Current Condition Current Complaints post urinary urgency, leakage, fatigue and pain with intercourse History of Current Condition pt notes she gave 2.5 months ago, she flet like she had to void constantly and if she sneezes or cough too hard she leaks, she has pain with and after intercourse, she will feel fatieh She is slowly getting the sensation back that she needs to use the bathroom. The intense urge sensation is really only at night. Her baby is sleeping 6 hours with her x 6 hours. pt had a 4th degree tear. Treatment Goals Patient/Caregiver Goals Pt's goals include improving strength of the pelvic floor and reducing urinary leakage and urgency PT-OP-C Subjective Start: 06/19/22 11:09 Freq: Status: Active Protocol: Document 07/15/22 09:49 [facility] (Rec: 07/15/22 10:25 [facility] [id number]) OP-PT Subjective Patient Comments Patient Comments pt has tried walking again and did 2 miles and felt fine, she didn't feel that she needed to elevate her pelvis but did try it. No c/o leakage now with walking. Polly feels good with the exercises she is doing for home Patient Reported Progress Improving PT-OP-I Pelvic Floor Start: 06/19/22 11:09 Freq: Status: Active Protocol: Document 06/24/22 10:20 [facility] (Rec: 06/24/22 10:22 [facility] [id number]) Pelvic Floor Assessment SEMG (uV) 10 Second Contraction 7.5 PT-OP-M Strength Start: 06/19/22 11:09 Freq: Status: Active Protocol: Document 06/19/22 11:15 [facility] (Rec: 06/19/22 17:14 [facility] [id number]) Trunk Strength Trunk Manual Muscle Testing Core Stabilization decreased activation of the transverse abdominal musulature post PT-OP-Q Treatments Start: 06/19/22 11:09 Freq: Status: Active Protocol: Document 07/15/22 09:49 [facility] (Rec: 07/15/22 10:25 [facility] [id number]) Therapeutic Exercises Supine Exercises supine bridges with therabnad Equipment Used level 2 theraband Reps/Minutes 2 x 10 reps supine hip ER with band Equipment Used level 2 theraband Reps/Minutes 3 x 10 Comments Polly had her baby on her stomach for this exercise templates for the pelvic floor Reps/Minutes 5 min Comments eccentric control and coordination pelvic floor quick contractions Reps/Minutes x 10 reps Comments 14.2 pelvic floor long holds Reps/Minutes 5.0 average and max of 16.9 uv Other Exercises TA with opp arm an leg Reps/Minutes x 10 Comments worked on TA with OA and then OL first Cat cow Reps/Minutes x 10 reps quadruped TA Reps/Minutes pt to work on holding up to 10 seconds x 10 reps PT-OP-T Assessment and Plan Start: 06/19/22 11:09 Freq: Status: Active Protocol: Document 07/15/22 09:49 [facility] (Rec: 07/15/22 10:25 [facility] [id number]) Physical Therapy Assessment Goals 3 Impairment urinary leakage with urge to void and with strong cough or sneeze leaking at times through her underware. [employer] Goal (LTG) Polly reports overall significant reduction in urinary leakage and is able to resume walks without urinary urgency Good progress and pt is not complaining of urgency on her walk LTG Duration 8 weeks 2 Impairment Decreased pelvic floor endurance Short Term Goal (STG) Polly is able to sustain a pelvic floor contraction x 10 seconds in supine excellent progress STG Duration 4 weeks [employer] Goal (LTG) Polly is able to sustain a pelvic floor contraction x 5 seconds in standing LTG Duration 8 wees 1 Impairment pelvic floor weakness with decreased support for the pelvic organs Short Term Goal (STG) Polly is educated on proper faciliation of her pelvic floor muscles with EMG biofeedback and manual cues GOAL MET STG Duration 3 weeks Alf Goal (LTG) Polly is able to increase her pelvic floor support by at least 1 muscle grade to provide improved support for the pelvic organs excellent progress LTG Duration 8 weeks+ Assessment Summary Assessment Polly has made good overall progress with pelvic floor strengthening post . She is walking 2 miles without increased pelvic pressure and is not leaking. Polly is doing well with her home exercise program. She will be discharged at this time to a home program. Physical Therapy Plan Discharge Physical Therapy Discharge Reasons Goals Met Discharge Comments Pt has made great overall progress with her pelvic floor strength and is Ind with a HEP
== END 2022-07-18 15:02 | disposition home or self-care (01) ==
LOC: PHYS 09:45
PROVIDERS: Family Provider Family Medicine; PCP Family Medicine; Referring Provider Obstetrics & Gynecology; Visit Provider Obstetrics & Gynecology
DX: M62.89 Other specified disorders of muscle (principal); N81.84 Pelvic muscle wasting; R39.15 Urgency of urination; N94.10 Unspecified dyspareunia
CPT/HCPCS: 97110; 97161; 97535

== ENCOUNTER → 2023-06-03 06:36 | Outpatient (CLI) | payer OTHER, SELFPAY ==
--- NOTE | 2023-06-03 06:39 | DI.US.S_ITS ---
PROCEDURE: US OB <= 14 WEEKS FETUS INDICATIONS: DATING OUTSIDE/PRIOR DATING DATA: Last menstrual period (LMP): 02/14/2023. LMP-based estimated date of delivery (TANIKA): 11/21/2023. TECHNIQUE: Real-time scanning was performed of the fetus and maternal pelvic organs, with image documentation. Endovaginal scanning was also performed to better visualize the fetus and maternal ovaries. COMPARISON: [facility], US, US OB <= 14 WEEKS FETUS, 09/05/2021, 17:15. FINDINGS: Single intrauterine gestational sac does contain yolk sac with but no definitive pole. No cardiac motion present. There is a focal nodule associated with the wall the gestational sac measuring 7 x 8 mm. Small perigestational bleed measures 2.1 x 2.0 x 0.8 cm. Right ovarian simple cyst measures 1.5 x 1.1 cm. IMPRESSION: In the para Single intrauterine gestational sac with yolk sac and no pole. Differential possibilities include normal early , anembryonic and demise. Focal nodularity involving all wall gestational sac is of uncertain etiology. Consider short-term interval follow-up evaluation. Small subchorionic bleed. Approved by: Ryan Alexander M.D. on 06/03/2023 at 10:55
== END ==
LOC: US 06:38
PROVIDERS: PCP Family Medicine; Referring Provider Specialist; Visit Provider Specialist
DX: O36.80X0 Pregnancy with inconclusive fetal viability, not applicable or unspecified; O46.8X1 Other antepartum hemorrhage, first trimester; O34.81 Maternal care for other abnormalities of pelvic organs, first trimester; N83.291 Other ovarian cyst, right side
CPT/HCPCS: 76801; 76817

== ENCOUNTER → 2023-07-01 10:18 | Outpatient (CLI) | payer OTHER, SELFPAY ==
[2023-07-01 11:34] LABS: Natera Collection Specimen Collected
[2023-07-01 11:38] LABS: Add Manual Diff / Slide Review NO; Basophils Absolute Auto 0 /uL (0-100); Basophils Percent Auto 0.4 % (0-2); Eosinophils Absolute Auto 100 /uL (0-450); Hematocrit 34.6 % (36-46); Hemoglobin 12.1 g/dL (12.0-16.0); Lymphocytes Absolute Auto 900 /uL (1100-4500); Lymphocytes Percent Auto 11.5 % (25-40); Mean Corpuscular Hemoglobin 30.8 PG (26-34); Mean Corpuscular Volume 88.1 fL (80-100); Monocytes Absolute Auto 800 /uL (0-900); Monocytes Percent Auto 10.7 % (3-14); Neutrophils Absolute Auto 5900 /uL (1500-7000); Neutrophils Percent Auto 76.4 % (50-75); Platelet Count 212 X10^3/uL (150-400); Red Blood Cell Count 3.93 X10^6/uL (4.0-5.2); Red Cell Distribution Width 12.9 % (11.6-14.8); White Blood Cell Count 7.7 X10^3/uL (4.5-11.0)
[2023-07-02 07:20] LABS: RPR Screen Non Reactive (Non Reactive)
[2023-07-02 13:59] LABS: Varicella IgG Antibody <135 index (Immune >165)
[2023-07-02 17:07] LABS: Hepatitis B Surface Antigen NEGATIVE s/c (NEGATIVE); Rubella Antibody IgG 32.7 IU/mL (>15)
[2023-07-02 17:25] LABS: HIV 1 & 2 Ab/Ag 4th Gen Combo NEGATIVE (NEGATIVE); Hep C Virus Ab w/Reflex Quant NEGATIVE s/c (NEGATIVE)
== END ==
LOC: LAB 10:20
PROVIDERS: Obstetrics & Gynecology; PCP Family Medicine; Referring Provider Specialist; Visit Provider Specialist
DX: Z34.81 Encounter for supervision of other normal pregnancy, first trimester (principal); Z3A.10 10 weeks gestation of pregnancy
CPT/HCPCS: 36415; 80055; 86787; 86803; 86850; 86900; 86901; 87086; 87389

== ENCOUNTER → 2023-07-03 15:37 | Outpatient (CLI) | payer OTHER, SELFPAY | PROVIDERS: PCP Family Medicine; Referring Provider Specialist; Visit Provider Specialist | DX: Z3A.10 10 weeks gestation of pregnancy (principal); Z34.81 Encounter for supervision of other normal pregnancy, first trimester | CPT/HCPCS: 36415 ==

== ENCOUNTER → 2023-08-26 14:07 | Outpatient (CLI) | payer OTHER, SELFPAY ==
[2023-08-31 13:11] LABS: AFP Value 48.9 ng/mL (.); Gest Age on Col Date 15.3 weeks (.); Gestational Age EDD (.); Insulin Dep Diabetes No (.); OSBR Risk 1IN 3048 (.); Results Report (.); Test Results *Screen Negative* (.)
== END ==
PROVIDERS: PCP Family Medicine; Referring Provider Obstetrics & Gynecology; Visit Provider Obstetrics & Gynecology
DX: Z34.82 Encounter for supervision of other normal pregnancy, second trimester (principal); Z3A.17 17 weeks gestation of pregnancy
CPT/HCPCS: 36415; 82105

== ENCOUNTER → 2023-09-16 15:09 | Outpatient (CLI) | payer OTHER, SELFPAY ==
--- NOTE | 2023-09-16 15:09 | DI.US.S_ITS ---
PROCEDURE: US OB >= 14 WEEKS FETUS INDICATIONS: 20 Week Anatomy scan OUTSIDE/PRIOR DATING DATA: Last menstrual period (LMP): 02/14/2023. LMP-based estimated date of delivery (TANIKA): 11/21/2023. First dating scan (date and location): 07/01/2023. Estimated date of delivery (TANIKA) from first dating scan: 01/27/2024. TECHNIQUE: Real-time scanning was performed of the fetus, with image documentation and biometric measurements. COMPARISON: [facility], , OB >= 14 WEEKS FETUS, 01/20/2022, 15:42. [facility], , US OB <= 14 WEEKS FETUS, 07/29/2023, 13:49. FINDINGS: General: A single living intrauterine gestation is present. Presentation: Vertex. Placenta: Placental position is posterior , without previa. Amniotic fluid index: 11.6 cm, normal range is 5-24 cm. Single deepest vertical pocket is 4.1 cm. heart rate: 145 beats per minute. Maternal cervical canal: 2.8 cm long. Normal lower limit is 2.5 cm. biometrics: Biparietal diameter: 4.9 cm 20 weeks 6 days Head circumference: 17.9 cm 20 weeks 3 days Abdominal circumference: 14.8 cm 20 weeks 0 days Femur length: 3.2 cm 20 weeks 0 days Clinically estimated gestational age: 20 weeks 4 days Composite gestational age from present scan: 20 weeks 2 days Estimated weight and percentile: 333 g 20 second percentile Anatomic survey: Neuro: Ventricles are non-dilated at less than 10 mm. Cisterna magna is normal at 3-11 mm. Cerebellum is normal in size and morphology. Nuchal skin fold: Normal at less than 6 mm between 14-21 weeks gestational age. Face: Nose and lips, facial profile are normal. Spine: No evidence for spina bifida. Heart: 4-chambered heart is present, with normal ventricular outflow tracts. Diaphragm: Diaphragm is intact. Stomach: Left-sided stomach is present. Kidneys: No hydronephrosis. Normal is less than 5 mm in 2nd trimester, less than 7 mm in 3rd trimester. Cord: 3-vessel cord has orthotopic insertion. Bladder: Normal in size. Extremities: All 4 extremities identified. IMPRESSION: Single live intrauterine with ultrasound gestational age today of 20 weeks 2 days. Anatomy is within normal limits. We strive to produce accurate, complete, and clear reports of imaging services. To assist us in improving patient care, this report was composed using standard report templates and voice recognition software. Therefore, it may contain abnormal punctuation, insertions and/or omissions. Occasional wrong-word or sound-alike substitutions may occur. Though we review the report and make efforts to correct it, we do recommend that the report be read carefully in proper context to recognize any text inaccuracies. Dictated by: Moni Kaur M.D. on 09/16/2023 at 17:18 Approved by: Moni Kaur M.D. on 09/16/2023 at 17:20
== END ==
PROVIDERS: PCP Family Medicine; Referring Provider Obstetrics & Gynecology; Visit Provider Obstetrics & Gynecology
DX: Z34.82 Encounter for supervision of other normal pregnancy, second trimester (principal); Z3A.20 20 weeks gestation of pregnancy
CPT/HCPCS: 76811

== ENCOUNTER → 2023-10-19 09:25 | Outpatient (CLI) | payer OTHER, SELFPAY ==
[2023-10-19 11:01] LABS: Hematocrit 33.6 % (36-46); Hemoglobin 11.8 g/dL (12.0-16.0)
[2023-10-19 11:30] LABS: GTT (PREG) 1 Hour PP 50gm Dose 101 mg/dL (76-139)
== END ==
PROVIDERS: Specialist; PCP Family Medicine; Referring Provider Obstetrics & Gynecology; Visit Provider Obstetrics & Gynecology
DX: Z34.82 Encounter for supervision of other normal pregnancy, second trimester (principal); Z3A.26 26 weeks gestation of pregnancy
CPT/HCPCS: 36415; 82950; 85014; 85018

== ENCOUNTER → 2023-12-30 15:34 | Outpatient (CLI) | payer OTHER, SELFPAY | PROVIDERS: PCP Family Medicine; Visit Provider Specialist | DX: Z34.90 Encounter for supervision of normal pregnancy, unspecified, unspecified trimester (principal); R31.9 Hematuria, unspecified; R80.9 Proteinuria, unspecified; Z3A.35 35 weeks gestation of pregnancy | CPT/HCPCS: 87086 ==

== ENCOUNTER 2024-01-12 17:58 | Observation (INO) | payer OTHER, SELFPAY | END 2024-01-12 18:44 | disposition home or self-care (01) | LOC: LABOR 18:00 | PROVIDERS: Admitting Provider Student in an Organized Health Care Education/Training Program; PCP Family Medicine; Referring Provider Student in an Organized Health Care Education/Training Program; Visit Provider Student in an Organized Health Care Education/Training Program | DX: O26.893 Other specified pregnancy related conditions, third trimester (principal); R51.9 Headache, unspecified; Z3A.37 37 weeks gestation of pregnancy | CPT/HCPCS: 59025; G0378; G0379 ==

== ENCOUNTER → 2024-01-13 16:04 | Outpatient (CLI) | payer OTHER, SELFPAY ==
[2024-01-14 14:17] LABS: Strep Grp B PCR NEG for Grp B Strep
== END ==
PROVIDERS: PCP Family Medicine; Visit Provider Obstetrics & Gynecology
DX: Z34.83 Encounter for supervision of other normal pregnancy, third trimester (principal); Z3A.37 37 weeks gestation of pregnancy
CPT/HCPCS: 87653

== ENCOUNTER 2024-01-14 11:15 | Outpatient (CLI) | payer OTHER, SELFPAY ==
[2024-01-14 12:00] LABS: Add Manual Diff / Slide Review NO; Basophils Absolute Auto 0 /uL (0-100); Basophils Percent Auto 0.3 % (0-2); Eosinophils Absolute Auto 200 /uL (0-450); Hematocrit 35.2 % (36-46); Lymphocytes Absolute Auto 2200 /uL (1100-4500); Lymphocytes Percent Auto 22.8 % (25-40); Mean Corpuscular HGB Conc 34.2 % (30-36); Mean Corpuscular Hemoglobin 30.1 PG (26-34); Monocytes Absolute Auto 1000 /uL (0-900); Neutrophils Absolute Auto 6300 /uL (1500-7000); Neutrophils Percent Auto 64.9 % (50-75); Platelet Count 281 X10^3/uL (150-400); Red Cell Distribution Width 13.9 % (11.6-14.8); White Blood Cell Count 9.7 X10^3/uL (4.5-11.0)
[2024-01-14 12:16] LABS: Alanine Aminotransferase 15 IU/L (<35); Albumin 3.5 g/dL (3.5-5.0); Albumin Globulin Ratio 1.1 (1.0-2.8); Alkaline Phosphatase 112 U/L (38-126); Aspartate Aminotransferase 20 IU/L (14-36); BUN Creatinine Ratio 14.3 (6-22); Bilirubin Total 0.7 mg/dL (0.2-1.3); Blood Urea Nitrogen 7 mg/dL (7-17); Carbon Dioxide 19 mmol/L (22-32); Chloride 104 mmol/L (98-107); Estimated Glomerular Filt Rate > 60 mL/min (>60); Globulin 3.3 g/dL (1.7-4.1); Glucose 80 mg/dL (70-100); HEMOLYSIS < 15 (0-50); Potassium 4.1 mmol/L (3.4-5.1); Sodium 131 mmol/L (137-145); Total Protein 6.8 g/dL (6.3-8.2); Uric Acid 4.8 mg/dL (2.5-6.2)
[2024-01-14 12:56] LABS: Creatinine Urine Random 71.56 mg/dL; Protein (Total) Urine Random 10 mg/dL (0-12); Protein Creatinine Ratio Urine 0.13 GRAM/24H
--- NOTE | 2024-01-14 13:24 | P.TNLD_ITS ---
Visit Information Visit Information Date of evaluation: 01/14/24 Primary OB Provider: Sahra Chaudhary Reason for Evaluation: Yes non-stress test non-stress test reason: hypertension/pre-eclampsia (Persistent headache for 3 days) Comments/Additional reasons for admission: Patient is a 28-year-old 2 para 1 at 37-,5/7 weeks gestation with 3 days of a frontal headache. No blurred vision or spots before her eyes. No right upper quadrant pain. Good movement. She has been taking a 1000 mg of Tylenol every 8 hours without complete relief of the headache. Vital Signs Vital Signs: Blood pressure: 99/60 [facility] Medical History (Updated 08/02/23 @ 20:20 by Sahra Chaudhary MD) Fourth degree laceration of perineum during delivery, Bacterial pneumonia (~2013) Encounter for supervision of normal first , first trimester Surgical History (Updated 02/04/21 @ 21:52 by Aleta Dorman) Anesthesia History of oral surgery (~2016) [place] teeth extracted (~2016) Family History (Updated 06/02/23 @ 08:42 by Mira Jauregui RN) Mother Depression Brother Depression Schizophrenia Family estrangement Grandfather Diabetes mellitus Alzheimers disease Grandfather Hypertension Hyperlipidemia Esophageal cancer Smoker Grandmother Cancer Father Alcoholism Social History marital status: number of children: 1 household members: spouse and children lives independently: Yes caregiver/support person: Yes housing: house pets and animals: Yes (2 dogs) education level: master's degree 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: 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, 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) special eloina needs: No travel history: recent and over 6 months ago seatbelt use: always helmet use: Yes water heater temp set < 120 deg: Yes working smoke detector in home: Yes fire extinguisher in home: Yes carbon monox detector in home: Yes firearms in home: No do you feel safe at home: Yes Smoking Status: Never smoker second hand exposure: No alcohol intake: former (rarely when not ) substance use type: marijuana (not recently, not while /) during the past year weight has: other (~10 lb over pre-baby weight) well-balanced diet: daily or most days daily servings fruits/ve-4 caffeine: Yes (AM cup black tea) Type(s) of exercise: walking Exam Narrative Exam Narrative: Extremities: 2+ DTRs in the right lower extremity, 1+ DTRs in the left lower extremity. 1+ DTRs both upper extremities. No clonus. Objective Labs 01/14/24 11:48 01/14/24 11:48 Labs: Laboratory Results - last 24 hr 01/14/24 01/14/24 11:30 11:48 WBC 9.7 RBC 4.00 Hgb 12.0 Hct 35.2 L MCV 88.0 MCH 30.1 MCHC 34.2 RDW 13.9 Plt Count 281 Neut % (Auto) 64.9 Lymph % (Auto) 22.8 L [place] % (Auto) 10.0 Eos % (Auto) 2.0 Baso % (Auto) 0.3 Neut # (Auto) 6300 Lymph # (Auto) 2200 Kings # (Auto) 1000 H Eos # (Auto) 200 Baso # (Auto) 0 Sodium 131 L Potassium 4.1 Chloride 104 Carbon Dioxide 19 L BUN 7 Creatinine 0.49 L Estimated GFR > 60 BUN/Creatinine Ratio 14.3 Glucose 80 Uric Acid 4.8 Calcium 9.0 Total Bilirubin 0.7 AST 20 ALT 15 Alkaline Phosphatase 112 Total Protein 6.8 Albumin 3.5 Globulin 3.3 Albumin/Globulin Ratio 1.1 U Random Total Protein 10 Urine Creatinine 71.56 Protein/Creatinin Ratio 0.13 Evaluation Evaluation Baseline heart rate: 135 Variability: Moderate (11-25) monitor accelerations: Present Monitor Decelerations: Absent Category of Tracing: Reactive Diagnosis, Plan/Disposition Plan/Disposition Plan: Assessment: 28-year-old 2 para 1 at 37-,5/7 weeks gestation with persistent headache, no other signs or symptoms of preeclampsia Plan: Discharge to home Follow-up in 6 days Signs and symptoms of preeclampsia reviewed. Signs and symptoms of labor reviewed OB Disposition: home
== END 2024-01-14 13:20 | disposition home or self-care (01) ==
LOC: OB 01-15 15:08
PROVIDERS: PCP Family Medicine; Referring Provider Obstetrics & Gynecology; Visit Provider Obstetrics & Gynecology
DX: O13.3 Gestational [pregnancy-induced] hypertension without significant proteinuria, third trimester (principal); Z3A.37 37 weeks gestation of pregnancy
CPT/HCPCS: 36415; 59025; 80053; 84550; 85025; G0378; G0379

== ENCOUNTER 2024-01-18 21:10 | Outpatient (CLI) | payer OTHER, SELFPAY | END 2024-01-18 21:55 | disposition home or self-care (01) | LOC: OB 01-21 10:49 | PROVIDERS: PCP Family Medicine; Referring Provider Obstetrics & Gynecology; Visit Provider Obstetrics & Gynecology | DX: O47.1 False labor at or after 37 completed weeks of gestation (principal); Z3A.38 38 weeks gestation of pregnancy | CPT/HCPCS: 59025; G0378; G0379 ==

== ENCOUNTER 2024-01-27 07:27 | Inpatient (IN) | payer OTHER, SELFPAY ==
[2024-01-27] MEDS: LACTATED RINGERS 1,000 ML 100 ML IV (08:12)
[2024-01-27] MEDS: OXYTOCIN PREMIX 30 UNIT/500 ML PLAST..BAG IV (08:13)
[2024-01-27 08:14] LABS: Add Manual Diff / Slide Review NO; Basophils Absolute Auto 0 /uL (0-100); Basophils Percent Auto 0.6 % (0-2); Eosinophils Absolute Auto 200 /uL (0-450); Eosinophils Percent Auto 1.9 % (2-4); Hematocrit 36.5 % (36-46); Hemoglobin 12.5 g/dL (12.0-16.0); Lymphocytes Absolute Auto 2000 /uL (1100-4500); Lymphocytes Percent Auto 24.5 % (25-40); Mean Corpuscular HGB Conc 34.4 % (30-36); Mean Corpuscular Hemoglobin 30.5 PG (26-34); Mean Corpuscular Volume 88.7 fL (80-100); Monocytes Absolute Auto 700 /uL (0-900); Monocytes Percent Auto 8.8 % (3-14); Neutrophils Absolute Auto 5200 /uL (1500-7000); Neutrophils Percent Auto 64.2 % (50-75); Platelet Count 279 X10^3/uL (150-400); Red Blood Cell Count 4.11 X10^6/uL (4.0-5.2); Red Cell Distribution Width 14.3 % (11.6-14.8); White Blood Cell Count 8.1 X10^3/uL (4.5-11.0)
[2024-01-27 08:39] VITALS: BP 95/54
--- NOTE | 2024-01-27 14:10 | PM.AN.REGBLK ---
Regional Block Pre-procedure PMH/ROS narrative: 28yr old requesting epidural for labor pain PSH/Anesthesia history narrative: Asthma- uses inhaler when ill ASA Class: II Labs: Hct 36.5 % (36-46) 01/27/24 07:45 Plt Count 279 X10^3/uL (150-400) 01/27/24 07:45 Medications: Current Medications Generic Name Dose Route Start Last Admin Trade Name Freq PRN Reason Stop Dose Admin Calcium Carbonate 1,000 mg 01/27/24 07:31 Calcium Carbonate 500 Mg Tab PO Q2HR PRN Dyspepsia Carboprost Tromethamine 250 mcg 01/27/24 07:31 Carboprost 250 Mcg/Ml Ampul IM Q90M PRN Bleeding Fentanyl 50 mcg 01/27/24 07:31 Fentanyl 100 Mcg/2 Ml Inj IV Q1H PRN Pain, Moderate (4-6) Oxytocin/Lactated Ringer's 30 unit in 500 mls @ 2 mls/hr 01/27/24 07:45 01/27/24 08:13 Oxytocin Premix IV 2 milliunit/min TITRATE SOHEILA 2 mls/hr Administration Protocol 2 MILLIUNIT/MIN Tranexamic Acid 1,000 mg/ 100 mls @ 600 mls/hr 01/27/24 07:31 Sodium Chloride IV NOW PRN Bleeding Lactated Ringer's 1,000 mls @ 100 mls/hr 01/27/24 07:45 01/27/24 08:12 Lactated Ringers IV 01/27/24 17:44 100 mls/hr CONT SOHEILA Administration Oxytocin/Lactated Ringer's 30 unit in 500 mls @ 200 mls/hr 01/27/24 07:31 Oxytocin Premix IV CONT PRN Bleeding Protocol Lidocaine HCl 20 ml 01/27/24 07:31 Lidocaine 1% 20 Ml INJ INTRA-OP PRN Post Delivery Methylergonovine Maleate 0.2 mg 01/27/24 07:31 Methylergonovine 0.2 Mg/Ml Vial IM NOW PRN Bleeding Methylergonovine Maleate 0.2 mg 01/27/24 07:31 Methylergonovine 0.2 Mg Tablet PO Q6HR PRN Heavy Bleeding Mineral Oil 30 ml 01/27/24 07:31 Mineral Oil 30 Ml Udc TOP PRN PRN Version Misoprostol 400 mcg 01/27/24 07:31 Misoprostol 200 Mcg Tablet SL NOW PRN Bleeding Misoprostol 800 mcg 01/27/24 07:31 Misoprostol 200 Mcg Tablet KS NOW PRN Bleeding Naloxone HCl 0.2 mg 01/27/24 07:31 Naloxone 0.4 Mg/Ml Vial IV Q2MIN PRN Opiate Reversal Ondansetron HCl 4 mg 01/27/24 07:31 Ondansetron 4 Mg/2 Ml Inj IV Q4HR PRN Nausea And Vomiting Oxytocin 10 unit 01/27/24 07:31 Oxytocin 10 Unit/Ml Vial IM NOW PRN Bleeding Allergies: Allergies Allergy/AdvReac Type Severity Reaction Status Date / Time adhesive Allergy Intermediate Rash Verified 01/27/24 09:10 --: [place] with CSE Procedure Insertion date: 01/27/24 Insertion time: 12:59 Prep/Local: 1% lidocaine (Chloroprep) Interspace: L3-4 Patient position: sitting Needle: 18 gauge mygalltead (27g W for CSE 1cc 0.25% bupivicaine injected at 1258 clear CSF prior to injection) Loss of resistance with: saline CIPRIANO at (cm): 6 Catheter placed at SKIN (cm): 12 Catheter in SPACE (cm): 6 Initial Medications TEST DOSE time: 13:00 BOLUS DOSE time: 13:05 BOLUS DOSE (mL): 7 BOLUS DOSE med: 0.25% bupivacaine Infusion INFUSION: 0.125% bupivacaine and with fentanyl 2 mcg/mL Initial rate (mL/hr): 7 Post-procedure Anesthesia date START: 01/27/24 Anesthesia time START: 12:46 Anesthesia date END: 01/27/24 Anesthesia time END: 13:53 Post-procedure Anesthesia Assessment: Yes CV function: HR/BP stable, Yes Resp function: RR/sat/airway adequate, Yes Post-op hydration adequate, Yes Pain control adequate, Yes Nausea & vomiting absent, Yes Temperature > 36 C and Yes Mental status appropriate
--- NOTE | 2024-01-27 15:15 | P.HPOB_ITS ---
OB HPI Date/Time Date of admission: 01/27/24 Date Patient Seen: 01/27/24 Time Patient Seen: 09:00 History of Present Condition Chief complaint: induction TANIKA Calculator 2 Estimated Delivery Date Method Current WG Current Estimate 01/30/24 Ultrasound #2 39w 4d Other Estimates 11/21/23 LMP (Certain) 49w 4d Estimated Gestational Age (weeks): 39+4 : 2 Para: 1 care: good care, initiated at week # (8), number of visits (11) and pounds weight gain (17) Dating criteria OB: LMP confirmed by 1st trimester US Ultrasounds: normal 1st trimester US and normal mid trimester US Obstetrical complications: none Medical complications OB: none Indications Indication for induction OB: other (previous forceps delivery and PPH, 4th degree laceration) Preadmission Labs Last OB Lab Results: 2 Blood Type A Positive 01/27/24 07:45 Antibody Screen Negative 01/27/24 07:45 Hct 36.5 % (36-46) 01/27/24 07:45 Hgb 12.5 g/dL (12.0-16.0) 01/27/24 07:45 Hep Bs Antigen Negative s/c (NEGATIVE) 07/01/23 10:34 Hepatitis C Antibody Negative s/c (NEGATIVE) 07/01/23 10:34 Rubella Antibody 32.7 IU/mL (>15) 07/01/23 10:34 VZV IgG Antibody <135 index (Immune >165) L 07/01/23 10:34 Glucose 1 Hr 50 gm 101 mg/dL (76-139) 10/19/23 10:40 Group B Strep (PCR) Neg for grp b strep 01/13/24 16:04 -: Chlamydia screen: negative, Gonorrhea screen: negative and Urine: negative -: PAP smear: Normal Genetic Screens: Cell-free DNA: Normal (low risk female) and Alpha-fetoprotein: Normal External Labs -: Urine: negative Prior (ies) Past Pregnancies Del. Date GA/Weeks Labor Lgth Wt Sex Route Outcome Anesthesia Place Delv Breastfeed Preg Comp Name 04/02/22 40.1 7 lb 8.7 oz Female forceps live - full t [facility] Still going at 14 months hemorrhage Lety Delivery Date: 04/02/22 Last Updated by: Mira Jauregui RN 4th degree laceration, erratic HR and BP related to spinal anesthesia Evaluation Evaluation Baseline heart rate: 150 Variability: Moderate (11-25) monitor accelerations: Present Monitor Decelerations: Absent Dilation (cm): 3 Effacement (%): 80 station: -1 Position of cervix: mid [facility] Medical History (Updated 08/02/23 @ 20:20 by Sahra Chaudhary MD) Fourth degree laceration of perineum during delivery, Bacterial pneumonia (~2013) Encounter for supervision of normal first , first trimester Surgical History (Updated 02/04/21 @ 21:52 by Aleta Dorman) Anesthesia History of oral surgery (~2016) [place] teeth extracted (~2016) Family History (Updated 06/02/23 @ 08:42 by Mira Jauregui RN) Mother Depression Brother Depression Schizophrenia Family estrangement Grandfather Diabetes mellitus Alzheimers disease Grandfather Hypertension Hyperlipidemia Esophageal cancer Smoker Grandmother Cancer Father Alcoholism Social History marital status: number of children: 1 household members: spouse and children lives independently: Yes caregiver/support person: Yes housing: house pets and animals: Yes (2 dogs) education level: master's degree 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, 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) special eloina needs: No travel history: recent and over 6 months ago seatbelt use: always helmet use: Yes water heater temp set < 120 deg: Yes working smoke detector in home: Yes fire extinguisher in home: Yes carbon monox detector in home: Yes firearms in home: No do you feel safe at home: Yes Smoking Status: Never smoker second hand exposure: No alcohol intake: former (rarely when not ) substance use type: marijuana (not recently, not while /) during the past year weight has: other (~10 lb over pre-baby weight) well-balanced diet: daily or most days daily servings fruits/ve-4 caffeine: Yes (AM cup black tea) Type(s) of exercise: walking Meds Home Medications and Allergies Home Medications Medication Instructions Recorded Confirmed Type cetirizine 10 mg capsule (Zyrtec) 10 mg PO DAILY PRN Allergic 08/19/21 01/27/24 History Symptoms prenat.vits,cici,gdq-ober-bjpiq 1 tab PO DAILY 08/19/21 01/27/24 History albuterol sulfate 90 mcg/actuation 2 puff inhalation Q6H PRN 05/12/22 01/27/24 Rx aerosol inhaler shortness of breath or wheezing #8.5 grams ondansetron 4 mg disintegrating 4 mg PO Q6H PRN nausea and 07/29/23 01/27/24 Rx tablet vomiting #30 tabs [id number] [id number] 0.5 ml IM ONCE #1 ea 12/02/23 01/20/24 Rx adjuvant(PF) 120 mcg/0.5 mL IM suspension, kit Allergies Allergy/AdvReac Type Severity Reaction Status Date / Time adhesive Allergy Intermediate Rash Verified 01/27/24 09:10 OB Exam Narrative Exam Narrative: Generally: No acute distress Fundal height: 39 cm Estimated weight: 7 lb Extremities: No edema Objective Labs 01/27/24 07:45 Labs: Laboratory Results - last 24 hr 01/27/24 07:45 WBC 8.1 RBC 4.11 Hgb 12.5 Hct 36.5 MCV 88.7 MCH 30.5 MCHC 34.4 RDW 14.3 Plt Count 279 Neut % (Auto) 64.2 Lymph % (Auto) 24.5 L [place] % (Auto) 8.8 Eos % (Auto) 1.9 L Baso % (Auto) 0.6 Neut # (Auto) 5200 Lymph # (Auto) 2000 [place] # (Auto) 700 Eos # (Auto) 200 Baso # (Auto) 0 Blood Type A Positive Antibody Screen Negative Assessment and Plan Assessment and Plan Assessment and Plan narrative: Assessment: 28-year-old 2 para 1 at 39-,4/7 weeks gestation with a history of a forceps delivery, fourth degree laceration, and hemorrhage with her first delivery Favorable cervix Plan: Pitocin per protocol to Artificial rupture of membranes Epidural as necessary Expected management to spontaneous vaginal delivery Time-Based Coding :: [TOTAL MINUTES] spent with patient and on the chart (including review of chart, obtaining history, exam, reviewing outside data, placing orders, documenting exam and treatment plan, and counseling patient) on [DATE].
--- NOTE | 2024-01-27 17:14 | PM.OBPNLAB ---
Date/Time Date Patient Seen: 01/27/24 Time Patient Seen: 11:00 Pain Control Pain control: tolerating well Pelvic Exam Dilation (cm): 4 Effacement (%): 90 station: 0 Amniotic membrane status: Intact Contractions Contractions on admission: none Monitor mode: External Pitocin rate (mU/min): 10 Contraction frequency (min): 3 Contraction duration (min): 1 Contraction pattern: Regular Contraction intensity: Moderate Status status: Category l Heart Rate Baseline: 145 Monitor Accelerations: Present Monitor Decelerations: Absent Monitor Variability: Moderate Assessment and Plan Assessment: induction ongoing Comments: AROM with clear amniotic fluid Epidural as needed Expectant management to
--- NOTE | 2024-01-27 17:16 | PM.OBPNLAB ---
Date/Time Date Patient Seen: 01/27/24 Time Patient Seen: 13:30 Pain Control Pain control: epidural Pelvic Exam Dilation (cm): 6 Effacement (%): 90 station: 0 Amniotic membrane status: Ruptured Contractions Monitor mode: External Pitocin rate (mU/min): 12 Contraction frequency (min): 3 Contraction duration (min): 1 Contraction pattern: Regular Contraction intensity: Strong/Firm Status status: Category l Heart Rate Baseline: 150 Monitor Accelerations: Present Monitor Decelerations: Variable Monitor Variability: Moderate Assessment and Plan Assessment: active labor Comments: Expectant management to Change positions for periodic variable decels Suspect that patient changing quickly
--- NOTE | 2024-01-27 17:20 | PM.OBPRVD ---
Events: Labor Induction Labor & Delivery Delivery date: 01/27/24 Cervical ripening method: none Induction method: per pitocin protocol Delivery augmentation: rupture of membranes Delivery monitor: external FHT and external uterine Route of delivery: Episiotomy description: None L&D Laceration Description: Vaginal - 1st Degree Delivery repair: chromic Quantitative Blood Loss: 200 Anesthesia Type: Epidural Complications: None Narrative: Patient complete and pushed with 2 contractions. At 1:53 p.m., a live female delivered spontaneously in the PETER presentation. No nuchal cord. The remainder of the body delivered without difficulty and placed on mom's abdomen. Pitocin was given in the IV fluids. The cord was double clamped and cut after it stopped pulsing. Cord bloods were obtained. The placenta delivered intact with a three-vessel cord at 1:59 p.m.. Fundus was massaged to firm. Perineum and vagina were inspected and there was a first-degree vaginal laceration which was repaired with 2-0 chromic in the usual fashion. Hemostasis was achieved. Apgars 9 at 1 minute and 9 at 5 minutes. Weight 6 lb 5.8 oz. epidural analgesia. . Mom and stable to recovery. [place] Baby 1: Infant gender: Female Presentation: vertex Position: Right Occiput Anterior Placenta delivery description: Spontaneous Cord Vessel Description: 3 Vessels and Clamped/Cut (after cord stopped pulsing) score (1 min): 9 score (5 min): 9 weight: 6 lb 5.8 oz Plan for aftercare: Routine care
[2024-01-27] MEDS: IBUPROFEN 600 MG TABLET PO (18:10)
[2024-01-28] MEDS: IBUPROFEN 600 MG TABLET PO (04:49)
[2024-01-28 06:33] LABS: Hematocrit 31.3 % (36-46); Hemoglobin 10.7 g/dL (12.0-16.0)
[2024-01-28] MEDS: PRENATAL VIT,CALC/IRON/FOLIC 1 TABLET 1 TAB PO (10:31)
[2024-01-28 15:08] VITALS: BP 114/75; PULSE 85; RESP 16; TEMP 36.4
== END 2024-01-28 14:25 | disposition home or self-care (01) | DRG 807 ==
PROVIDERS: Admitting Provider Obstetrics & Gynecology; PCP Family Medicine; Referring Provider Obstetrics & Gynecology; Visit Provider Obstetrics & Gynecology
DX: O70.0 First degree perineal laceration during delivery (principal); Z37.0 Single live birth; Z3A.39 39 weeks gestation of pregnancy; O76 Abnormality in fetal heart rate and rhythm complicating labor and delivery
CPT/HCPCS: 36415; 59050; 59400; 85014; 85018; 85025; 86850; 86900; 86901; G0379; J2590